=== PATIENT | male | born 1950 | race Caucasian/White ===

== ENCOUNTER 2017-12-26 05:49 | Day surgery (SDC) | payer MEDICARE, OTHER ==
[2017-12-26] MEDS ORDERED: PROPOFOL 10 MG/ML VIAL IV ONE (05:50)
[2017-12-26] MEDS ORDERED: ONDANSETRON HCL IV 4 MG/2 ML VIAL IVP ONE (05:50)
[2017-12-26] MEDS ORDERED: FENTANYL PF 100MCG/2ML VIAL IV ONE ×2 (05:50)
[2017-12-26] MEDS ORDERED: BUPIVACAINE 0.25% W/EPI MPF 30ML VIAL IVP ONE (05:50)
[2017-12-26] MEDS ORDERED: HYDROCODONE/APAP 5/325MG TABLET PO ONE (05:50)
[2017-12-26] MEDS ORDERED: MIDAZOLAM HCL 2MG/2ML VIAL IV ONE (05:50)
[2017-12-26] MEDS ORDERED: DEXAMETHASONE 4 MG/ML 1ML VIAL IVP ONE (05:50)
[2017-12-26] MEDS ORDERED: KETOROLAC 30 MG/ML VIAL IVP ONE (05:50)
[2017-12-26] MEDS ORDERED: LIDOCAINE 2% MDV (20MG/ML) 20ML VIAL IV ONE (05:50)
[2017-12-26] MEDS ORDERED: SEVOFLURANE 250 ML INH ONE (05:50)
[2017-12-26] MEDS ORDERED: CEFAZOLIN 2 Gram 2 GM/50 ML BAG IVPB ONE (06:00)
[2017-12-26] MEDS ORDERED: ACETAMINOPHEN 1,000 MG/100 ML BTL IV ONE (06:00)
--- NOTE | 2017-12-28 10:01 | Operative Note ---
DATE OF SERVICE: 12/26/2017. DATE OF SURGERY: 12/26/2017. Surgeon: Thony White DO. REFERRING PHYSICIAN: Christopher Hatfield DO. PREOPERATIVE DIAGNOSES: 1. Torn medial meniscus of the left knee. 2. Chondrocalcinosis, left knee. POSTOPERATIVE DIAGNOSES: 1. Torn medial and lateral menisci, left knee. 2. Loose joint body, left knee. 3. Medial midpatellar plica, left knee. 4. Chondromalacia (tricompartmental), left knee. 5. Chondrocalcinosis, left knee. OPERATION: 1. Arthroscopic partial medial and lateral meniscectomy, left knee. 2. Arthroscopic removal of loose joint body, left knee. 3. Arthroscopic resection, medial midpatellar plica, left knee. 4. Arthroscopic chondroplasty, medial femoral condyle, trochlea, and patella, left knee. PROCEDURE: This 67-year-old male was taken to the operating room, placed in the supine position on the operating room table, where general anesthesia was induced. The left lower extremity was then elevated. It was exsanguinated, and tourniquet inflated to 300 mmHg. Arthroscopic knee lloyd applied. Left knee prepped with Hibiclens and draped in the usual sterile fashion. An inferolateral portal was established for the 4 mm arthroscope, and initial evaluation of the joint demonstrated chondromalacia of the patella, grade 2, as well as chondromalacia of the trochlea and a thickened and fibrotic medial midpatellar plica. The inferomedial portal was established, and probing of these structures demonstrated loose articular cartilage at the patellofemoral articulation, and chondroplasty was performed to stabilize the articular cartilage there. There was no normal articular cartilage at the patellofemoral joint. We resected the medial midpatellar plica. The medial compartment was entered, and advanced grade 2 chondromalacia of the medial femoral condyle was present with significant irregularity of the articular surface. Again, no normal articular cartilage was present on the medial femoral condyle. Extensive chondrocalcinosis was noted on the medial meniscus, and a flap tear was present posteriorly with horizontal cleavage components. We resected the unstable fragment, which was from about the 11 o'clock position to the posterior horn. This was probed, and it was returned to a smooth, stable, contoured rim. We then directed our attention to the intercondylar notch, and the anterior cruciate ligament was seen to be normal, but there was a loose joint body in the anterior aspect of the knee in the intercondylar notch. This was grasped with the grasper and removed from the joint. There were some superficial fraying and degeneration of the anterior horn of the lateral meniscus due to chondrocalcinosis. This was debrided, but there were flap tears of the body of the lateral meniscus, and utilizing the rotating shaver, these were resected to a stable, contoured rim. The articular cartilage of the lateral compartment demonstrated very mild grade 2 changes. The joint was then copiously irrigated with lactated Ringer solution, and it was reevaluated. With no additional findings present, the joint was then suctioned, and the portals were infiltrated with 0.25% Marcaine with epinephrine after all the instruments were removed. Sterile dressings were then applied and the patient taken to the recovery room in satisfactory condition. GROSS PATHOLOGY: This patient demonstrated grade 2 chondromalacia throughout the knee, involving all 3 compartments, most severe in the medial compartment and patellofemoral joint. There were a medial midpatellar plica, a loose joint body present anteriorly in the intercondylar notch, and tears of both the medial and lateral menisci, as described above. ELEANORD
== END 2017-12-26 08:35 | disposition home or self-care (01) ==
LOC: SUR 05:49
PROVIDERS: ATTEND Orthopaedic Surgery
DX: S83.282A Other tear of lateral meniscus, current injury, left knee, initial encounter (principal); M23.42 Loose body in knee, left knee; M67.52 Plica syndrome, left knee; M11.262 Other chondrocalcinosis, left knee; M94.262 Chondromalacia, left knee; N40.0 Benign prostatic hyperplasia without lower urinary tract symptoms; K21.9 Gastro-esophageal reflux disease without esophagitis; F17.210 Nicotine dependence, cigarettes, uncomplicated
CPT/HCPCS: 29880; 29876; 27331; 01400; J1885; J2405; J3010; J0690

== ENCOUNTER 2018-10-08 08:15 | Day surgery (SDC) | payer MEDICARE, OTHER ==
[~2018-10-08 08:15] MED LIST: CEFAZOLIN 2 Gram 2 GM/50 ML BAG IVPB ONE; FAMOTIDINE 20MG TABLET PO ONE; MECLIZINE 25 MG TABLET PO ONE; METOCLOPRAMIDE 10 MG TABLET PO ONE
[2018-10-08] MEDS ORDERED: TRANEXAMIC ACID 1,000 MG/10 ML ML IV ONE (08:16)
[2018-10-08] MEDS ORDERED: ROPIVACAINE HCL (NAROPIN) /PF 5MG/ML 20ML VIAL IV ONE (08:16)
[2018-10-08] MEDS ORDERED: DEXAMETHASONE 4 MG/ML 1ML VIAL IVP ONE (08:16)
[2018-10-08] MEDS ORDERED: MIDAZOLAM HCL 2MG/2ML VIAL IV ONE (08:16)
[2018-10-08] MEDS ORDERED: PROPOFOL 10 MG/ML VIAL IV ONE (08:16)
[2018-10-08] MEDS ORDERED: GLYCOPYRROLATE 0.2 MG/ML ML IV ONE (08:16)
[2018-10-08] MEDS ORDERED: LIDOCAINE 2% MDV (20MG/ML) 20ML VIAL IV ONE (08:16)
[2018-10-08] MEDS ORDERED: RINGERS SOLUTION,LACTATED 1,000 ML IV ONE ×2 (09:00→10:56)
[2018-10-08] MEDS ORDERED: ZOLPIDEM TARTRATE 5 MG TABLET PO PRN (12:45)
[2018-10-08] MEDS ORDERED: ONDANSETRON HCL IV 4 MG/2 ML VIAL IVP PRN (12:45)
[2018-10-08] MEDS ORDERED: METOCLOPRAMIDE HCL 10 MG/2 ML VIAL IVP PRN (12:45)
[2018-10-08] MEDS ORDERED: AL HYDROX/MAG HYDROX 30ML UD PO PRN (12:45)
[2018-10-08] MEDS ORDERED: NALOXONE 0.4 MG/1 ML VIAL IVP PRN (12:45)
[2018-10-08] MEDS ORDERED: DIPHENHYDRAMINE HCL 25 MG CAPSULE PO PRN (12:45)
[2018-10-08] MEDS ORDERED: MAGNESIUM HYDROXIDE 30 ML UDC PO PRN (12:45)
[2018-10-08] MEDS ORDERED: HYDROCODONE/APAP 5/325MG TABLET PO PRN (12:45)
[2018-10-08] MEDS ORDERED: SENNOSIDES/DOCUSATE SODIUM UD CAPSULE PO PRN (12:45)
[2018-10-08] MEDS ORDERED: OXYCODONE HCL/APAP 5MG/325MG TABLET PO PRN ×2 (12:45)
[2018-10-08] MEDS ORDERED: TRAMADOL HCL 50 MG TABLET PO PRN ×2 (12:45)
[2018-10-08] MEDS ORDERED: ACETAMINOPHEN 325 MG TAB PO PRN (12:45)
[2018-10-08] MEDS: RINGERS SOLUTION,LACTATED 1,000 ML IV SCH (13:18)
[2018-10-08] MEDS: HYDROCODONE/APAP 5/325MG TABLET PO PRN ×2 (13:53→20:27)
[2018-10-08] MEDS ORDERED: TRANEXAMIC ACID 1,000 MG in 0.9 % SODIUM CHLORIDE 100ML 100 ML IVPB ONE (15:00)
[2018-10-08] MEDS: HYDROMORPHONE HCL 2 MG/ML VIAL IV PRN ×2 (15:07→18:06)
--- NOTE | 2018-10-08 15:46 | Rehab Evaluation ---
Patient Information - Patient Information Diagnosis: L knee OA Ordered Treatment: PT Evaluate and Treat Status: Initial Evaluation Surgery: Yes (L TKA) Date of Surgery: 10/08/18 Past Medical/Surgical Hx: PAST MEDICAL/SURGICAL HISTORY Surgery to Affected Area? No Recent Surgery? Past Surgical History bilat knee scopes, rt shoulder scope, right hand sx, rhizotomy; rtka; hernia PMH - Respiratory Hx Respiratory Disorders No PMH - Cardiovascular Hx Cardiovascular Disorders No Hx Hypertension No: was on b/p meds in the past was taken off d/ t hypotension Exercise Tolerance Good PMH - Neuro Hx Neurological Disorders No PMH - GI Hx Gastrointestinal Disorders Yes Hx Diverticulitis Yes: A FEW YRS AGO Hx Gastroesophageal Reflux Yes: on Prevacid with good control Comment: sanford's esophagus PMH - Hx Genitourinary Disorders Yes Hx Prostate Problems Yes: enlarged Comment: flomax for prostate PMH - Endocrine Hx Endocrine Disorders No Hx Diabetes No Hx Thyroid Disease No PMH - Musculoskeletal Hx Musculoskeletal Disorders Yes Hx Arthritis Yes Hx Gout Yes: LONG TIME AGO PMH - Psych Hx Psychiatric Problems No PMH - Hematology/Oncology Hx Hematology/Oncology No Disorders Premorbid Status: Detail (The patient was independent with all mobility prior to surgery.) Social History: Detail (The patient lives with spouse in a one story house with 3 steps at the enterance and one hand rail. The bathroom is equipped with: a tub/shower combination, tub seat, standard height toilet. No grab bars are present in bathroom. The patient has a front wheeled walker and a standard cane.) Precautions: [place], Fall, Other (WBAT on the L LE.) - Time With Patient Total Time Spent With Patient (Min): 30 Treatment Procedures: Detail (Initial Evaluation low complexity, gait training) Subjective Information - Subjective Information Per Patient (The patient had complaints of posterior L knee pain (hamstring insertion region) but did not rate his pain using the 0-10 pain scale.) Objective Data - Mental Status Patient Orientation: Oriented x3 - Visual Perception Appears within normal limits for therapeutic activities - ROM Not within normal limits (The patient's L knee AROM is limited s/p surgery. All other LE is WFL.) - Strength/Tone Not within normal limits (The patient's L LE strength is limited s/p surgery however was functional ie: patient was able to acheive a SLR. The patient's R LE was WFL.) - Bed Mobility Independent (The patient was independent with supine to sit with use of trapeze and sit to supine without use of trapeze. The patient was indpendent with scooting up in bed.) - Transfers Independent (The patient was independent with sit to and stand transfer.) - Balance Balance Sitting: Good Balance Standing: Good - Gait Detail (The patient ambulated to bathroom (7 ft.) and 50 feet x 1 with front wheeled walker WBAT on the L LE with supervision for safety only.) Therapy Assessment - Therapy Assessment Detail (The patient was independent with transfers and required supervision for safety only with ambulation. Feel the patient will progress well with mobility.) Problem List - Problem List Physical Therapy Problem List: Detail (1) Decreased L knee AROM as to be expected following surgery. 2) Decreased L knee strength s/p surgery.) Goals - Goals Physical Therapy Goals: 1) The patient will be independent with TKA HEP. 2) The patient will ambulate on stairs with supervision for safety using proper technique. Prognosis - Prognosis Good Plan - Plan Physical Therapy Plan: PT 1-2 sessions for gait training on stairs and instruction in HEP.
[2018-10-08] MEDS: LANSOPRAZOLE 30 MG PO SCH (17:11)
[2018-10-08] MEDS: CEFAZOLIN 2 Gram 2 GM/50 ML BAG IVPB SCH (17:58)
[2018-10-08] MEDS: ASPIRIN 325 MG TAB ENTERIC-COATED PO SCH (21:09)
[2018-10-09] MEDS: CEFAZOLIN 2 Gram 2 GM/50 ML BAG IVPB SCH ×3 (01:46→10:07)
[2018-10-09] MEDS: RINGERS SOLUTION,LACTATED 1,000 ML IV SCH (04:56)
[2018-10-09] MEDS: LANSOPRAZOLE 30 MG PO SCH (06:24)
[2018-10-09] MEDS: HYDROCODONE/APAP 5/325MG TABLET PO PRN ×2 (08:42→12:29)
[2018-10-09] MEDS: ASPIRIN 325 MG TAB ENTERIC-COATED PO SCH (09:27)
--- NOTE | 2018-10-09 09:53 | Physical Therapy Tx Note ---
Physical Therapy Tx Note - Treatment Note Tolerated: Good Total Time Spent With Patient: 20 Physical Therapy Tx Note: Detail (The patient was up in chair when PT arrived. The patient continues to have complaints of posterior lateral pain in L knee but did not rate pain using 0-10 pain scale. The patient ambulated with front wheeled walker a distance of 100 feet x 1 WBAT on the L LE. The patient ambulated on 3 steps with use of one railing with supervision for safety using proper technique. The patient completed TKA exercises: seated heelslides, gluteal sets, quad sets, hamstrings sets, ankle pumps and SLR . The patient has met all inpatient goals and is discharged from inpatient PT. The patient is to continue with outpatient PT.) Physical Therapy Problem List: Detail (1) Decreased L knee AROM as to be expected following surgery. 2) Decreased L knee strength s/p surgery.) Physical Therapy Goals: 1) The patient will be independent with TKA HEP.(Goal Met). 2) The patient will ambulate on stairs with supervision for safety using proper technique.(Goal Met) Physical Therapy Plan: PT 1-2 sessions for gait training on stairs and instruction in HEP.
[2018-10-09] MEDS ORDERED: FINASTERIDE 5 MG PO SCH (10:00)
[2018-10-09] MEDS ORDERED: TADALAFIL 5 MG PO SCH (10:00)
--- NOTE | 2018-10-09 10:38 | Rehab Evaluation ---
Patient Information - Patient Information Diagnosis: L knee OA Ordered Treatment: OT Evaluate and Treat Status: Initial Evaluation Surgery: Yes (L TKA) Date of Surgery: 10/08/18 Past Medical/Surgical Hx: PAST MEDICAL/SURGICAL HISTORY Surgery to Affected Area? No Recent Surgery? Past Surgical History bilat knee scopes, rt shoulder scope, right hand sx, rhizotomy; rtka; hernia PMH - Respiratory Hx Respiratory Disorders No PMH - Cardiovascular Hx Cardiovascular Disorders No Hx Hypertension No: was on b/p meds in the past was taken off d/ t hypotension Exercise Tolerance Good PMH - Neuro Hx Neurological Disorders No PMH - GI Hx Gastrointestinal Disorders Yes Hx Diverticulitis Yes: A FEW YRS AGO Hx Gastroesophageal Reflux Yes: on Prevacid with good control Comment: sanford's esophagus PMH - Hx Genitourinary Disorders Yes Hx Prostate Problems Yes: enlarged Comment: flomax for prostate PMH - Endocrine Hx Endocrine Disorders No Hx Diabetes No Hx Thyroid Disease No PMH - Musculoskeletal Hx Musculoskeletal Disorders Yes Hx Arthritis Yes Hx Gout Yes: LONG TIME AGO PMH - Psych Hx Psychiatric Problems No PMH - Hematology/Oncology Hx Hematology/Oncology No Disorders Premorbid Status: Detail (The patient was independent with all mobility prior to surgery. His is responsible for home mgmt, meal prep and laundry; pt is responsible for yard work.) Social History: Detail (The patient lives with spouse in a one story house with 3 steps at the entrance and one hand rail. The bathroom is equipped with: a tub/ shower combination and a standard height toilet. No grab bars are present in bathroom. The patient has a front wheeled walker and a standard cane.) Precautions: [place], Fall, Other (WBAT on the L LE.) - Time With Patient Total Time Spent With Patient (Min): 25 Treatment Procedures: Detail (OT eval low complexity) Subjective Information - Subjective Information Per Patient Objective Data - Pain Pain Present: Yes (4-5/10) - Mental Status Patient Orientation: Oriented x3 - Visual Perception Appears within normal limits for therapeutic activities - ROM Within normal limits ([place] UE AROM WNL) - Strength/Tone Within normal limits ([place] UE strength WNL) - Coordination Appears within normal limits for therapeutic activities - Transfers Independent (Ind with sit to stand from chair height.) - Balance Balance Sitting: Good Balance Standing: Good - Sensation Intact - Gait Detail (Pt ambulating in room with 2 wheeled walker and SBA.) - ADL's/IADL's Detail (Pt educated re: modified LE dressing techniques, he had already donned shorts but was able to demonstrate doffing slipper socks and donning socks and tennis shoes. Reviewed kitchen and shower safety and modifications, pt verbalized understanding.) Therapy Assessment - Therapy Assessment Detail (Pt is Ind with modified LE dressing techniques.) Problem List - Problem List Physical Therapy Problem List: Detail (1) Decreased L knee AROM as to be expected following surgery. 2) Decreased L knee strength s/p surgery.) Occupational Therapy Problem List: Detail (No current IP OT problems identified.) Goals - Goals Physical Therapy Goals: 1) The patient will be independent with TKA HEP.(Goal Met). 2) The patient will ambulate on stairs with supervision for safety using proper technique.(Goal Met) Occupational Therapy Goals: No current IP OT goals identified. Prognosis - Prognosis Good Plan - Plan Physical Therapy Plan: PT 1-2 sessions for gait training on stairs and instruction in HEP. Occupational Therapy Plan: No further IP OT recommended. Thank you for this referral.
--- NOTE | 2018-10-10 08:11 | Discharge Summary ---
DATE OF ADMISSION: 10/08/2018 DATE OF DISCHARGE: 10/09/2018 ADMITTING DIAGNOSIS: Osteoarthritis of the left knee. DISCHARGE DIAGNOSIS: Osteoarthritis of the left knee. OPERATIVE PROCEDURE: Elective left total knee arthroplasty. HISTORY OF PRESENT ILLNESS: This 68-year-old male was admitted to the hospital for a total knee arthroplasty and tolerated the operative procedure well. He cleared physical therapy the first postoperative day. The drain had been removed and he was ready for discharge. He had no complaints of chest pain or shortness of breath, no signs of DVT. DISCHARGE INSTRUCTIONS: The patient will be discharged with outpatient physical therapy. He was to wear his MARLON hose during the day and remove them at night. He was given a prescription for [place] 5/325 #40, 1 every 6 hours as necessary for pain. In addition, he was to take aspirin 325 mg daily for 4 weeks. Routine wound care instructions were given. He will follow up in the office in 2 weeks. Should he have any problems prior to being seen he was instructed to call my office. ELDA
--- NOTE | 2018-10-10 08:11 | Operative Note ---
DATE OF SURGERY: 10/08/2018 SURGEON: Thony White DO PREOPERATIVE DIAGNOSIS: Osteoarthritis of the left knee. POSTOPERATIVE DIAGNOSIS: Osteoarthritis of the left knee. OPERATION: Left total knee arthroplasty. DESCRIPTION OF PROCEDURE: This 68-year-old male was taken to the operating room and placed in the supine position on the operating room table. Spinal anesthetic had been induced by the department of anesthesia, and left lower extremity was elevated. It was prepped with Hibiclens and draped in the usual sterile fashion. It was exsanguinated and the tourniquet inflated to 300 mmHg. All scrub personnel wore personal isolation suits. An anterior longitudinal midline incision was made followed by a medial parapatellar arthrotomy incision. An intracondylar drill hole was made for the intramedullary alignment calos, and a 9 mm 6-degree valgus cut was made in the distal femur. The wafer of bone was removed. Sizing jig affixed, and a size 65 was seen to be the appropriate size. It was pinned 2 mm anteriorly to avoid notching the femur. The appropriate cuts were made. A 3-degree external rotation cut was made. Wafers of bone were removed. We then directed our attention to the proximal tibia, and an extramedullary alignment guide was used to cut the proximal tibia referencing a 10 mm cut off the lateral tibial plateau. However, because of significant bone loss in the medial tibial plateau, it was necessary for us to cut an additional 4 mm of bone. Once the cutting block had been pinned in a 3-degree posterior slope cut and the appropriate rotation, the wafer of bone was cut and removed. Remnants of the menisci and osteophytes were removed from the posterior aspect of the joint. The tibia was sized to a size 75, and the stem punch was used. because of the sclerotic bone medially, drill holes were made in the proximal tibia for anchoring of the cement. The trial components were then inserted and an 11 mm bearing was seen to be the appropriate size giving us excellent stability and full range of motion. The patella was cut and retried to anatomic height with a 34 x 7.8 mm trial. The wound was again copiously irrigated after all trial components had been removed. All bony surfaces were dried. All components were cemented into place and excess cement removed after the insertion of each component. Initially the tibial baseplate was cemented followed by the insertion of the tibial bearing, femoral component, and finally the patella. Once the cement had hardened, the knee was again taken through range of motion and found to be stable. A drain was placed through a separate stab incision. The wound had been copiously irrigated with pulse lavage lactated Ringer's solution. The arthrotomy incision was closed with a #2 Vicryl. The subcutaneous tissue was closed with 0 Vicryl, and the skin was stapled. Sterile dressings applied with a Polar Care. The patient was taken to the recovery room in satisfactory condition. GROSS PATHOLOGY: This patient had severe medial compartment osteoarthritis with full-thickness articular cartilage loss noted there, advanced degenerative disease of the patella was also identified. Final components inserted were a [employer] size 65 cruciate retaining femoral component, a size 75 tibial baseplate, an 11 mm anterior stabilized E1 bearing, and a 34 x 7.8 mm patella was used. ELDA
== END 2018-10-09 14:22 | disposition home or self-care (01) ==
LOC: SUR 08:15 → MEDSURG 12:23 → SUR 10-09 14:22
PROVIDERS: ATTEND Orthopaedic Surgery
DX: M17.12 Unilateral primary osteoarthritis, left knee (principal); N40.0 Benign prostatic hyperplasia without lower urinary tract symptoms; K21.9 Gastro-esophageal reflux disease without esophagitis
CPT/HCPCS: 27447; 01402; 64447; 76942; J1170; J0690 ×2; J3490; J2795; J7120

== ENCOUNTER 2018-12-02 13:22 | Emergency (ER) | payer MEDICARE, OTHER ==
--- NOTE | 2018-12-02 13:36 | Emergency Department Record ---
History of Present Illness - General Chief Complaint: Shortness of breath Stated Complaint: SHORT OF BREATHE Time Seen by Provider: 12/02/18 13:33 Source: Patient, Family Mode of Arrival: Ambulatory Limitations: No limitations - History of Present Illness Initial Comments: 68 yo male presents after being seen in the [facility]. The patient had his left knee replaced with Dr White at the end of September. He states he went to the [facility] today because he has not got his energy level back to where it was before surgery. He gets tired more with activity than before surgery. He take more naps than before surgery. He feels tired a lot and sleeps more often. He thought by this point in time he would feel much better. He did not have any troubles before surgery. He was very active. He has noticed it more in the last 3-4 weeks. No chest pain. No cough. No chest pain with exertion but short of breath sometimes with walking outside. He walks around his home without dypjnea. His leg still has some pain but it is much better and he was cleared by Dr White. The [facility] noted an elevated D-Dimer so he was sent to the ED for evaluation. He does have a follow up appointment with his PCP on Sunday. His CBC and CMP were also completed by the [facility] and were normal. PCP is Dr Hatfield. He reports he had a cath 5 years ago with a 60% blockage that did not require intervention or follow up per the patient. He does not follow with a specific insurance writer or group. MD Complaint: Shortness of breath (Fatigue) Onset/Timin -: Week(s) Radiation: Other Severity: Moderate Improves With: Nothing Worsens With: Nothing Known History Of: Other Associated Symptoms: Denies other symptoms Treatments Prior to Arrival: None - Related Data Home Medications Medication Instructions Recorded Confirmed Last Taken Cholecalciferol (Vitamin D3) 2,000 unit PO DAILY 12/02/18 12/02/18 Unknown [Vitamin D3] Allergies Allergy/AdvReac Type Severity Reaction Status Date / Time No Known Drug Allergies Allergy Verified 12/02/18 13:35 Travel Screening - Travel/Exposure Within Last 30 Days Have you traveled within the last 30 days?: No Review of Systems Constitutional: Denies: Chills, Fever, Malaise, Weakness Eyes: Denies: Eye discharge, Eye pain, Photophobia, Vision change ENT: Denies: Congestion, Throat pain Respiratory: Reports: Dyspnea. Denies: Cough, Hemoptysis, Stridor, Wheezes Cardiovascular: Denies: Arrhythmia, Chest pain, Edema, Palpitations, Syncope Endocrine: Reports: Fatigue. Denies: Polydipsia, Polyuria Gastrointestinal: Denies: Abdominal pain, Diarrhea, Nausea, Vomiting Genitourinary: Denies: Dysuria, Frequency, Hematuria Musculoskeletal: Denies: Arthralgia, Back pain, Joint swelling, Myalgia Skin: Denies: Bruising, Change in color, Rash Neurological: Denies: Headache, Numbness, Weakness Psychiatric: Denies: Anxiety Hematological/Lymphatic: Denies: Blood Clots, Easy bleeding, Easy bruising, Swollen glands Past Medical History - SOCIAL HISTORY Smoking Status: Never smoker Alcohol Use: None Drug Use: None - RESPIRATORY Hx Respiratory Disorders: No - CARDIOVASCULAR Hx Cardio Disorders: No Hx Hypertension: Yes - NEURO Hx Neuro Disorders: No - GI Hx GI Disorders: Yes Comment:: sanford's esophagus - Hx Genitourinary Disorders: Yes Hx Prostate Problems: Yes (enlarged) - ENDOCRINE Hx Endocrine Disorders: No Hx Diabetes: No Hx Thyroid Disease: No - MUSCULOSKELETAL Hx Musculoskeletal Disorders: Yes Hx Arthritis: Yes - PSYCH Hx Psych Problems: No - HEMATOLOGY/ONCOLOGY Hx Hematology/Oncology Disorders: No Family Medical History Any Significant Family History?: Yes Hx Cancer: Father, Mother, Brother/Sister Physical Exam - General General Appearance: Alert, Oriented x3, Cooperative, No acute distress Limitations: No limitations - Head Head exam: Atraumatic, Normal inspection - Eye Eye exam: Normal appearance, PERRL. negative: Conjunctival injection, Scleral icterus - ENT ENT exam: Normal exam, Mucous membranes moist Ear exam: Normal external inspection Nasal Exam: Normal inspection Mouth exam: Normal external inspection - Neck Neck exam: Normal inspection. negative: Tenderness - Respiratory Respiratory exam: Normal lung sounds bilaterally. negative: Accessory muscle use, Chest wall tenderness, Decreased breath sounds, Prolonged expiratory, Respiratory distress, Rhonchi, Stridor, Wheezes - Cardiovascular Cardiovascular Exam: Regular rate, Normal rhythm, Normal heart sounds Peripheral Pulses: 2+: Radial (R), Radial (L) - GI/Abdominal GI/Abdominal exam: Soft. negative: Tenderness - Rectal Rectal exam: Deferred - exam: Deferred - Extremities Extremities exam: negative: Calf tenderness, Pedal edema, Tenderness - Back Back exam: Denies: CVA tenderness (R), CVA tenderness (L) - Neurological Neurological exam: Alert, Normal gait, Oriented X3 - Psychiatric Psychiatric exam: Normal affect, Normal mood. negative: Agitated, Anxious - Skin Skin exam: Dry, Intact, Normal color, Warm Course Vital Signs 12/02/18 13:30 Temperature 97.9 F Pulse Rate 91 H Respiratory 18 Rate Blood Pressure 141/103 Pulse Ox 95 - Reevaluation(s) Reevaluation #1: 12/02/18 13:44 EKG #1: 12:46 Rate: 75 Rhythm: sinus with pvc's [place]: N Intervals: N ST segments: No acute abnormalities Prior: 09/2018. He has known longstanding PVC's 12/02/18 13:45 The labs from [facility] were reviewed Normal CBC and CMP Elevated D-Dimer CTA ordered. 12/02/18 15:[address] scan demonstrates significant calcification of the LAD and RCA. No PE. 12/02/18 16:09 BNP is normal The Troponin is normal The patient is resting comfortably. 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 12/02/18 16:31 The case was discussed with Dr Arredondo of cardiology. We discussed the EKG, CT, labs He recommends a expedited outpatient work up. The patient will be called tomorrow morning for appointment time The patient is asymptomatic in the ED without signs of unstable angina He has ambulated with chest pain or shortness of breath. The patient prefers an outpatient work up. His have mild symptoms and certainly none in the ED He agrees with Dr Arredondo's plan for outpatient arrangement of follow up The patient agrees with this plan and understands reasons to return to the ED immediately. 12/02/18 17:11 Disposition Disposition: Discharge Clinical Impression: Fatigue Qualifiers: Fatigue type: unspecified Qualified Code(s): R53.83 - Other fatigue Dyspnea Qualifiers: Dyspnea type: unspecified Qualified Code(s): R06.00 - Dyspnea, unspecified Disposition: Home, Self-Care Condition: (1) Good Instructions: Dyspnea (ED) Additional Instructions: Follow up with the insurance writer. You will get a call tomorrow morning to set up a time Review this ER visit and the [facility] visit tests with your family doctor as well Take an aspirin daily until you see the insurance writer Return immediately to the ER for a recheck if worse, chest pain, short of breath or any new concerns or questions Referrals: [facility] Special[facility] [Provider Group] Yobany Rosa M.D. [MEDICAL DOCTOR] - JOCELIN ARREDONDO [MEDICAL DOCTOR] - Forms: Patient Portal Access Time of Disposition: 17:13 Quality - Quality Measures Quality Measures: N/A - Blood Pressure Screening Does Patient Have Any of the Following: No, Active Dx of HTN Blood Pressure Classification: Hypertensive Reading Systolic Measurement: 141 Diastolic Measurement: 103 Screening for High Blood Pressure: Patient Exclusion, Hx of HTN [[id number]]
[2018-12-02 15:57] LABS: NTpro B-NATRIURETIC PEPTIDE 99.39 pg/mL (<125)
[2018-12-02] MEDS ORDERED: ASPIRIN 81 MG CHEWABLE TABLET PO ONE (16:08)
--- NOTE | 2018-12-03 11:09 | CT ANGIOGRAM REPORT ---
EXAM: CT ANGIOGRAM OF THE CHEST HISTORY: DYSPNEA. TECHNIQUE: Routine CT angiogram of the chest is performed utilizing a pulmonary embolus protocol. 69 ml of Omnipaque 350 were utilized. Maximum intensity projection reformatted images are generated in the coronal and sagittal planes and reviewed. Comparison: Same day two view chest radiographic examination. FINDINGS: Opacification of the pulmonary arteries is satisfactory for interpretation. No luminal filling defect is noted within the outflow tract, main arteries, lobar arteries or proximal segmental arteries to suggest acute pulmonary embolic disease. The heart is not enlarged. There is diffuse atherosclerotic calcification of the left anterior descending artery. There is at least mild atherosclerotic calcification of the proximal right coronary artery. There is mild atherosclerosis of the thoracic aorta. No thoracic aortic aneurysm nor evidence of dissection. The ascending thoracic aorta at the level of the right main pulmonary artery measures 3.4 cm in diameter. No thoracic aortic dissection is seen. No mediastinal nor hilar mass/lymphadenopathy. Nonenlarged lymph nodes are scattered throughout the mediastinum. The central airways are clear. Mild dependent atelectasis is present in each lung base. Minor reticular opacity prominence is noted in the lateral lung bases consistent with mild chronic interstitial change. No pleural or pericardial effusion. The adrenal glands are not enlarged. There is likely a small cyst arising from the lateral mid right kidney, incompletely imaged. This measures at least 11 mm in diameter. No lytic or blastic bone lesion. There are degenerative changes scattered throughout the visualized spine. No axillary adenopathy. IMPRESSION: 1. NO CTA EVIDENCE OF ACUTE PULMONARY EMBOLIC DISEASE. NO THORACIC AORTIC ANEURYSM NOR THORACIC AORTIC DISSECTION. 2. MILD DEPENDENT ATELECTASIS IN THE LOWER LUNGS. MINOR RETICULAR OPACITY PROMINENCE WITHIN THE LATERAL LUNG BASES CONSISTENT WITH MILD CHRONIC INTERSTITIAL CHANGE. 3. DIFFUSE MODERATE TO SEVERE ATHEROSCLEROTIC CALCIFICATION OF THE LEFT ANTERIOR DESCENDING ARTERY. AT LEAST MILD ATHEROSCLEROTIC CALCIFICATION OF THE RIGHT CORONARY ARTERY PROXIMALLY. 4. PROBABLE SMALL RIGHT RENAL CYST. JOB NUMBER: [id number] [facility]
== END 2018-12-02 17:01 | disposition home or self-care (01) ==
LOC: ER 13:22
DX: R53.83 Other fatigue (principal); R06.02 Shortness of breath; R79.89 Other specified abnormal findings of blood chemistry; R06.00 Dyspnea, unspecified; I10 Essential (primary) hypertension; Z96.652 Presence of left artificial knee joint
CPT/HCPCS: 71046; 71275; 80053; 83880; 84443; 84484; 85025; 85379; 99284